=== PATIENT | female | born 1935 | race Two or more races ===

== ENCOUNTER 2021-03-04 06:17 | Inpatient (IN) | payer OTHER, SELFPAY ==
--- NOTE | ~2021-03-04 | XR_ITS ---
EXAMINATION: XR CHEST CLINICAL INFORMATION: Chest pain. COMPARISON: None TECHNIQUE: Frontal view of the chest was obtained. FINDINGS: The lungs are are in moderate inspiration with minimal atelectatic changes in both lung base. No consolidation. No pleural effusion.. Heart size and pulmonary vascularity is normal. No gross bony abnormality seen. XR/XR chest 1V IMPRESSION: Minimal atelectatic changes both lung bases. No consolidation or pleural effusion.
[2021-03-04 06:29] VITALS: BP 142/67; PULSE 88; RESP 18; TEMP 36.4; O2SAT 98; BMI 21.4
--- NOTE | 2021-03-04 06:50 | ED_ITS ---
HPI - Chest Pain General Chief Complaint: Chest Pain Stated Complaint: High blood pressure Time Seen by Provider: 03/04/21 06:50 Source: patient Mode of arrival: EMS Limitations: no limitations History of Present Illness HPI narrative: This is a 86-year-old female with no significant past medical history who presents via EMS for chest pain that woke her at 05:00. She states that she recently had a family member , and since then she has been having centralized chest pain that does not radiate. Nothing like this has ever happened to her before, she has no past cardiac history, or significant family history. She states that the pain is intermittent and, and is described as a pressure in the center of her chest. She denies abdominal pain, shortness of breath, dizziness, headaches, fevers and chills. Related Data Home Medications Medication Instructions Recorded Confirmed amlodipine 2.5 mg tablet 2.5 mg PO DAILY 03/04/21 03/04/21 calcium carbonate 500 mg (1,250 1 tab PO BID 03/04/21 03/04/21 mg)-vitamin D3 200 unit tablet (Oysco 500/D) cetirizine 10 mg tablet 10 mg PO DAILY 03/04/21 03/04/21 diclofenac sodium 1 % topical gel 1 ea TOPICAL QID 03/04/21 03/04/21 famotidine 20 mg tablet 20 mg PO BID 03/04/21 03/04/21 sennosides 8.6 mg-docusate sodium 1 tab PO BEDTIME 03/04/21 03/04/21 50 mg tablet (Stimulant Laxative Plus) tamoxifen 20 mg tablet 20 mg PO DAILY 03/04/21 03/04/21 venlafaxine 37.5 mg 37.5 mg PO DAILY 03/04/21 03/04/21 capsule,extended release 24 hr Allergies Allergy/AdvReac Type Severity Reaction Status Date / Time No Known Allergies Allergy Verified 03/04/21 06:32 Review of Systems Review of Systems: Constitutional : No Weight loss, No Fever, No Chills ENT/Mouth : No sore throat, No Rhinorrhea Eyes: No Eye Pain, No Swelling Cardiovascular : + Chest Pain, no palpitations Respiratory : No Cough, No Sputum, no shortness of breath Gastrointestinal : no Nausea, No Vomiting, No Diarrhea, No abdominal Pain, no black stools Genitourinary : No Dysuria, No Urinary Frequency Musculoskeletal : No joint pain, No Myalgias, No Joint Swelling Skin : No Skin Lesions, No rash Neuro : No Weakness, No Numbness, No Dizziness, No Headache Psych : No Anxiety/Panic, No Depression Heme/Lymph: No Bruising, No Lymphadenopathy Endocrine : No Polyuria, No Polydipsia All other systems reviewed and are negative [facility] Past Medical History Medical History (Updated 03/04/21 @ 11:42 by Yassine Blackburn MD) Breast cancer Dyspepsia Hypertension Osteoarthritis Osteoporosis Surgical History (Updated 03/04/21 @ 11:42 by Yassine Blackburn MD) Status post right knee replacement Social History Social History (Updated 03/04/21 @ 11:43 by Yassine Blackburn MD) Alcohol intake: never Patient Tobacco Use Status: Never used Tobacco Use of substances other than those prescribed or required for medical reasons: No Advance Directives: No Advance Directives Information Provided: No Physical Exam Vital Signs: Vital Signs: Last Vital Signs Temp 98.2 F 03/04/21 08:00 Pulse 78 03/04/21 08:00 Resp 20 03/04/21 08:00 BP 119/63 03/04/21 08:00 Pulse Ox 98 03/04/21 08:00 Body Mass Index 21.4 Appearance: Alert. Oriented X3. No acute distress. Eyes: PERRLA ENT: Pharynx normal. Oral Mucosa moist Neck: Normal inspection. Neck supple. CVS: Normal heart rate and rhythm. Pulses normal. Respiratory: No respiratory distress. Equal air entry bilateral, no wheezing/rales/rhonchi Abdomen: Soft and nontender. Bowel sounds are present, no mass palpable, no CVA tenderness Skin: Skin warm and dry. Normal skin color. Normal skin turgor. Extremities: No lower extremity edema. No calf tenderness Neuro: Oriented X 3. No motor deficit. MDM - Chest Pain MDM Narrative Medical decision making narrative: Patient has an increased stress woke up with chest pain elevated troponin without any acute ischemic changes in the kit EKG. Case discussed Dr. Gonzalez advised to start on heparin plan to admit and cardiac cath if needed patient chest pain-free during stay in the ER Lab Data Attestation: I reviewed the patient's lab results. Result diagrams: 03/04/21 09:14 03/04/21 09:14 Labs: Lab Results 03/04/21 03/04/21 03/04/21 Range/Units 09:14 09:14 09:14 WBC 7.4 (4.8-10.8) X10*3/uL RBC 4.27 (4.20-5.50) X10*6/uL Hgb 12.7 (12.0-16.0) g/dl Hct 38.0 (37-47) % MCV 89.0 (80-98) fL MCH 29.7 (27.0-33.0) pg MCHC 33.4 (31.0-35.0) g/dl RDW 14.3 (11.0-16.0) % Plt Count 179 (160-400) X10*3/uL MPV 9.3 L (9.4-12.3) fL Immature Gran % (Auto) 0.4 (0.0-0.4) % Neut % (Auto) 63.0 (45-73) % Lymph % (Auto) 24.9 (20-40) % [place] % (Auto) 9.7 (2-11) % Eos % (Auto) 1.5 (0-4) % Baso % (Auto) 0.5 (0-2) % Lymph # (Auto) 1.8 (1.2-4.9) X10*3/uL [place] # (Auto) 0.7 (0.1-1.2) X10*3/uL Eos # (Auto) 0.1 (0.0-0.4) X10*3/uL Baso # (Auto) 0.0 (0.0-0.2) X10*3/uL Abs Immat Gran (auto) 0.03 (0.00-0.03) X10*3/uL Absolute Neuts (auto) 4.6 (2.0-8.3) X10*3/uL Absolute Nucleated RBC 0.000 (0.0-0.012) X10*3/uL Nucleated RBC % (auto) 0.0 (0.0-0.2) /100WBC PT (9.9-13.0) SEC INR (0.9-1.1) APTT (24.1-38.0) SEC Sodium 141 (135-145) mmol/L Potassium 4.2 (3.3-5.1) mmol/L Chloride 112 H (96-108) mmol/L Carbon Dioxide 20 L (22-29) mmol/L Anion Gap 13 (12-20) BUN 14 (9-16) mg/dL Creatinine 0.87 (0.5-1.4) mg/dL Estim Creat Clear Calc 32.8 Estimated GFR > 60 Random Glucose 92 (60-115) mg/dL Calcium 8.9 (8.4-10.2) mg/dL Total Bilirubin 1.1 H (0.0-1.0) mg/dL Direct Bilirubin 0.4 (0.0-0.5) mg/dL AST 44 H (5-31) U/L ALT 13 (0-31) U/L Alkaline Phosphatase 42 (39-117) U/L Troponin I High Sens (<3.5-17.0) ng/L Total Protein 5.9 L (6.5-8.0) g/dL Albumin 3.3 L (3.5-5.0) g/dL COVID-19 (IAN) Negative (Negative) COVID-19 Clin Com See Note 03/04/21 03/04/21 Range/Units 09:14 09:14 WBC (4.8-10.8) X10*3/uL RBC (4.20-5.50) X10*6/uL Hgb (12.0-16.0) g/dl Hct (37-47) % MCV (80-98) fL MCH (27.0-33.0) pg MCHC (31.0-35.0) g/dl RDW (11.0-16.0) % Plt Count (160-400) X10*3/uL MPV (9.4-12.3) fL Immature Gran % (Auto) (0.0-0.4) % Neut % (Auto) (45-73) % Lymph % (Auto) (20-40) % [place] % (Auto) (2-11) % Eos % (Auto) (0-4) % Baso % (Auto) (0-2) % Lymph # (Auto) (1.2-4.9) X10*3/uL [place] # (Auto) (0.1-1.2) X10*3/uL Eos # (Auto) (0.0-0.4) X10*3/uL Baso # (Auto) (0.0-0.2) X10*3/uL Abs Immat Gran (auto) (0.00-0.03) X10*3/uL Absolute Neuts (auto) (2.0-8.3) X10*3/uL Absolute Nucleated RBC (0.0-0.012) X10*3/uL Nucleated RBC % (auto) (0.0-0.2) /100WBC PT 11.4 (9.9-13.0) SEC INR 1.0 (0.9-1.1) APTT 29.9 (24.1-38.0) SEC Sodium (135-145) mmol/L Potassium (3.3-5.1) mmol/L Chloride (96-108) mmol/L Carbon Dioxide (22-29) mmol/L Anion Gap (12-20) BUN (9-16) mg/dL Creatinine (0.5-1.4) mg/dL Estim Creat Clear Calc Estimated GFR Random Glucose (60-115) mg/dL Calcium (8.4-10.2) mg/dL Total Bilirubin (0.0-1.0) mg/dL Direct Bilirubin (0.0-0.5) mg/dL AST (5-31) U/L ALT (0-31) U/L Alkaline Phosphatase (39-117) U/L Troponin I High Sens 3993.1 H* (<3.5-17.0) ng/L Total Protein (6.5-8.0) g/dL Albumin (3.5-5.0) g/dL COVID-19 (IAN) (Negative) COVID-19 Clin Com ECG Data ECG #1: Attestation: I personally reviewed and interpreted this ECG as follows: Interpretation: Normal sinus rhythm heart rate 86 beats per minute right bundle-branch block left axis no acute ST wave changes no acute ischemia Critical Care Time Critical Care Time Critical Care Time: Yes Total Critical Care Time: 35 Attestation: I spent 35 minutes of critical care, with interventions, asse ssments, speaking to patient, consultants, and family. Discharge Plan Discharge Clinical Impression: Non-STEMI (non-ST elevated myocardial infarction) Patient Disposition: Admitted As Inpatient
--- NOTE | 2021-03-04 07:03 | ECG_ITS ---
Test Reason : CP Blood Pressure : / mmHG Vent. Rate : 086 BPM Atrial Rate : 086 BPM P-R Int : 170 ms QRS Dur : 108 ms QT Int : 404 ms P-R-T Axes : 047 -80 -03 degrees QTc Int : 483 ms Normal sinus rhythm Low voltage QRS Right bundle branch block Left anterior fascicular block Bifascicular block Nonspecific T wave abnormality Abnormal ECG No previous ECGs available Referred By: Connor Piña Electronically Signed By:DARIANA NUNES
[2021-03-04 08:00] VITALS: BP 119/63; PULSE 78; RESP 20; TEMP 36.8; O2SAT 98
[2021-03-04] MEDS: Aspirin Enteric Coated 81 MG TABLET.DR 162 MG PO (09:15)
[2021-03-04] MEDS: Nitroglycerin 2 % Oint 1 GM Packet 0.5 INCH TRANSDERMA (09:16)
[2021-03-04 09:29] LABS: MANUAL DIFF FLAG NO
[2021-03-04 09:30] LABS: Basophils Percent Auto 0.5 % (0-2); Eosinophils Absolute Auto 0.1 X10*3/uL (0.0-0.4); Eosinophils Percent Auto 1.5 % (0-4); Hemoglobin 12.7 g/dl (12.0-16.0); Imm Gran Abs Auto 0.03 X10*3/uL (0.00-0.03); Imm Gran Pct Auto 0.4 % (0.0-0.4); Lymphocytes Absolute Auto 1.8 X10*3/uL (1.2-4.9); Lymphocytes Percent Auto 24.9 % (20-40); Mean Corpuscular HGB Conc 33.4 g/dl (31.0-35.0); Mean Corpuscular Hemoglobin 29.7 pg (27.0-33.0); Mean Platelet Volume 9.3 fL (9.4-12.3); Monocytes Absolute Auto 0.7 X10*3/uL (0.1-1.2); Monocytes Percent Auto 9.7 % (2-11); Neutrophils Absolute Auto 4.6 X10*3/uL (2.0-8.3); Platelet Count 179 X10*3/uL (160-400); Red Blood Count 4.27 X10*6/uL (4.20-5.50); Red Cell Distribution Width 14.3 % (11.0-16.0); White Blood Count 7.4 X10*3/uL (4.8-10.8)
[2021-03-04 09:35] LABS: Prothrombin Time 11.4 SEC (9.9-13.0)
[2021-03-04 09:38] LABS: Partial Thromboplastin Time 29.9 SEC (24.1-38.0)
[2021-03-04 09:44] LABS: Alanine Aminotransferase 13 U/L (0-31); Albumin Level 3.3 g/dL (3.5-5.0); Alkaline Phosphatase 42 U/L (39-117); Anion Gap 13 (12-20); Aspartate Amino Transferase 44 U/L (5-31); Bilirubin Direct 0.4 mg/dL (0.0-0.5); Bilirubin Total 1.1 mg/dL (0.0-1.0); Blood Urea Nitrogen 14 mg/dL (9-16); Calcium 8.9 mg/dL (8.4-10.2); Carbon Dioxide 20 mmol/L (22-29); Chloride 112 mmol/L (96-108); Creatinine Clr Calc Pharmacy 32.8; Estimated Glomerular Filt Rate > 60; Glucose Random 92 mg/dL (60-115); Potassium 4.2 mmol/L (3.3-5.1); Sodium 141 mmol/L (135-145); Total Protein 5.9 g/dL (6.5-8.0)
[2021-03-04 09:53] LABS: COVID-19 Test Negative (Negative); IDNOW Serial# 9DD0AD1C
--- NOTE | 2021-03-04 09:56 | PC.NURSE ---
PT PENDING ADMISSION, HERE FOR CHEST PAIN, IV STARTED LABS SENT MEDS GIVEN. PT IS AOX4 ABLE TO AMB WITH STEADY GAIT. PT IS PENDING ADMISSION MED REC COMPLETED BY PHARMACY. CRITICAL LAB TROP 3993.1 DENICE IS AWARE
[2021-03-04 11:22] VITALS: BP 101/69; PULSE 81; RESP 18; TEMP 36.8; O2SAT 98
--- NOTE | 2021-03-04 11:32 | P.HPHOSP_ITS ---
History of Present Illness Date of Service: 03/04/21 Chief Complaint: Chest pain This is an 86-year-old female with a past medical history of hypertension, breast cancer currently on tamoxifen, osteoporosis, dyspepsia who presents to the hospital with complaints of substernal chest pain which began several hours prior to arrival. Patient is Tongan-speaking only but does have her granddaughter who is also her [employer] bedside and she prefers to have her translate. Per history reported by the granddaughter, the patient found out yesterday that 1 of her sons had and she became extremely emotional as 1 would expect after this. She went to bed yesterday evening and about 05:00 on the day of ED arrival patient woke up with left-sided pressure-like pain which was radiating to her back. The patient also has arthritis of the left arm so it was difficult for her to report whether this was worse as well. She reported that during this time she also had some trouble breathing. In regards to anginal symptoms in the past, initially the patient reported that she did not have any exertional chest pain. However upon specific questioning she endorse that over the last several months after walking her usual amount at home she has indeed had chest pain which lasts about 30 minutes. She reported that due to her history of dyspepsia she felt that this was gastrointestinal in nature and did not make much of it. Upon arrival to the emergency room she was noted to have a elevated high sensitivity troponin nearly 4000. Her EKG showed normal sinus rhythm with a right bundle pawel block as well as a left anterior fascicular block. She was started on IV heparin, given aspirin 162 and given nitropaste. Admission was requested. The case was discussed by the ED provider with the dance hall host/hostess whom will be seeing her in the hospital. When I saw the patient down in the emergency room, she reported that her chest pain had significantly improved. She was no longer feeling short of breath. r Review of Systems Review of Systems: chest pain, sob, arm pain Yes all other systems are reviewed and are negative [facility] Medical History (Updated 03/04/21 @ 11:42 by Yassine Blackburn MD) Breast cancer Dyspepsia Hypertension Osteoarthritis Osteoporosis Pertinent family history: Denies any history of CAD Surgical History (Updated 03/04/21 @ 11:42 by Yassine Blackburn MD) Status post right knee replacement Social History (Updated 03/04/21 @ 11:43 by Yassine Blackburn MD) Alcohol intake: never Patient Tobacco Use Status: Never used Tobacco Use of substances other than those prescribed or required for medical reasons: No Advance Directives: No Advance Directives Information Provided: No Meds Allergies Allergy/AdvReac Type Severity Reaction Status Date / Time No Known Allergies Allergy Verified 03/04/21 06:32 Active Medications: Current Medications Generic Name Dose Route Start Last Admin Trade Name Freq PRN Reason Stop Dose Admin Acetaminophen 650 mg 03/04/21 11:22 Acetaminophen 325 Mg Tablet PO Q6H PRN Pain, Mild (Pain Scale 1-3) Amlodipine Besylate 2.5 mg 03/05/21 09:00 Amlodipine Besylate 2.5 Mg Tablet PO DAILY [facility] Protocol Aspirin 81 mg 03/05/21 09:00 Aspirin 81 Mg Tab.Chew PO DAILY [facility] Atorvastatin Calcium 40 mg 03/04/21 21:00 Atorvastatin Calcium 40 Mg Tablet PO BEDTIME YOUSUF Famotidine 20 mg 03/04/21 21:00 Famotidine 20 Mg Tablet PO BID [facility] Heparin Sodium (Porcine) 1,900 unit 03/04/21 10:27 Heparin Sodium,Porcine 5,000 Unit/Ml Vial 40 unit/kg (1900 unit) IVPUSH PROTOCOL BOLUS PRN 40 unit/kg - Heparin Protocol Protocol Heparin Sodium (Porcine) 3,800 unit 03/04/21 10:27 Heparin Sodium,Porcine 5,000 Unit/Ml Vial 80 unit/kg (3800 unit) IVPUSH PROTOCOL BOLUS PRN 80 unit/kg - Heparin Protocol Protocol Heparin Sodium/Sodium Chloride 25,000 unit in 250 mls @ 0 mls/hr 03/04/21 10:30 IVCONT .Q0M [facility] Protocol Per Protocol Loratadine 10 mg 03/05/21 09:00 Loratadine 10 Mg Tablet PO DAILY [facility] Non-Formulary Medication 1 tab 03/04/21 21:00 Calcium Carbonate-Vitamin D3 [Oysco 500/D] PO BID [facility] Ondansetron HCl 4 mg 03/04/21 11:22 Ondansetron Hcl 4 Mg/2 Ml Vial IVPUSH Q8H PRN Nausea and Vomiting Pharmacy Consult 1 each 03/04/21 08:35 Consult Rx Perform Med Rec MISCELLANE ONCE PRN Consult order Senna/Docusate Sodium 1 tab 03/04/21 21:00 Sennosides/Docusate Sodium Tablet PO BEDTIME [facility] Sodium Chloride 3 ml 03/04/21 16:00 0.9 % Sodium Chloride Flush 3 Ml Syringe [facility] Tamoxifen Citrate 20 mg 03/05/21 09:00 Tamoxifen Citrate 10 Mg Tablet PO DAILY [facility] Venlafaxine HCl 1,406.25 mg 03/05/21 09:00 Venlafaxine Hcl Er 37.5 Mg Cap.Er.24h PO DAILY [facility] Home Medications Medication Instructions Recorded Confirmed Last Taken Type amlodipine 2.5 mg tablet 2.5 mg PO DAILY 03/04/21 03/04/21 03/03/21 History calcium carbonate 500 mg (1,250 1 tab PO BID 03/04/21 03/04/21 03/03/21 History mg)-vitamin D3 200 unit tablet (Oysco 500/D) cetirizine 10 mg tablet 10 mg PO DAILY 03/04/21 03/04/21 03/03/21 History diclofenac sodium 1 % topical gel 1 ea TOPICAL QID 03/04/21 03/04/21 Unknown History famotidine 20 mg tablet 20 mg PO BID 03/04/21 03/04/21 03/03/21 History sennosides 8.6 mg-docusate sodium 1 tab PO BEDTIME 03/04/21 03/04/21 03/03/21 History 50 mg tablet (Stimulant Laxative Plus) tamoxifen 20 mg tablet 20 mg PO DAILY 03/04/21 03/04/21 03/03/21 History venlafaxine 37.5 mg 37.5 cap PO DAILY 03/04/21 03/04/21 03/03/21 History capsule,extended release 24 hr Physical Exam Vital Signs and Narrative: Vital Signs: Last Vital Signs Temp 98.2 F 03/04/21 08:00 Pulse 78 03/04/21 08:00 Resp 20 03/04/21 08:00 BP 119/63 03/04/21 08:00 Pulse Ox 98 03/04/21 08:00 Body Mass Index 21.4 Const: Other: Constitutional - Awake and Alert, No apparent distress Eyes - PERRLA, EOMI Cardiovascular - S1S2, RRR, No edema Respiratory - Normal lung expansion, Normal respiratory effort, No respiratory distress, CTA bilaterally Gastrointestinal - NT / ND; +BS; No rebound or guarding - No CVA tenderness Extremities - no calf tenderness bilaterally, no swelling Musculoskeletal - Normal inspection, normal ROM Skin - Warm/Dry Neurological - Alert & oriented x3, No focal deficit Psychological - Appropriate affect Results Labs CBC and Chem 7: 03/04/21 09:14 03/04/21 09:14 Labs: Laboratory Results - last 24 hr 03/04/21 03/04/21 03/04/21 09:14 09:14 09:14 MCV 89.0 MCH 29.7 MCHC 33.4 RDW 14.3 Plt Count 179 MPV 9.3 L Immature Gran % (Auto) 0.4 Neut % (Auto) 63.0 Lymph % (Auto) 24.9 [place] % (Auto) 9.7 Eos % (Auto) 1.5 Baso % (Auto) 0.5 Lymph # (Auto) 1.8 [place] # (Auto) 0.7 Eos # (Auto) 0.1 Baso # (Auto) 0.0 Abs Immat Gran (auto) 0.03 Absolute Neuts (auto) 4.6 Absolute Nucleated RBC 0.000 Nucleated RBC % (auto) 0.0 PT INR APTT Anion Gap 13 Estim Creat Clear Calc 32.8 Estimated GFR > 60 Random Glucose 92 Calcium 8.9 Total Bilirubin 1.1 H Direct Bilirubin 0.4 AST 44 H ALT 13 Alkaline Phosphatase 42 Troponin I High Sens Total Protein 5.9 L Albumin 3.3 L COVID-19 (IAN) Negative COVID-19 Clin Com See Note 03/04/21 03/04/21 09:14 09:14 MCV MCH MCHC RDW Plt Count MPV Immature Gran % (Auto) Neut % (Auto) Lymph % (Auto) [place] % (Auto) Eos % (Auto) Baso % (Auto) Lymph # (Auto) [place] # (Auto) Eos # (Auto) Baso # (Auto) Abs Immat Gran (auto) Absolute Neuts (auto) Absolute Nucleated RBC Nucleated RBC % (auto) PT 11.4 INR 1.0 APTT 29.9 Anion Gap Estim Creat Clear Calc Estimated GFR Random Glucose Calcium Total Bilirubin Direct Bilirubin AST ALT Alkaline Phosphatase Troponin I High Sens 3993.1 H* Total Protein Albumin COVID-19 (IAN) COVID-19 Clin Com ECG Attestation: I personally reviewed and interpreted this ECG as follows: (NSR with RBBB) ECG interpretation date: 03/04/21 ECG interpretation time: 11:38 Imaging Radiologist's Impressions: Impressions Chest X-Ray 03/04/21 07:04 IMPRESSION: Minimal atelectatic changes both lung bases. No consolidation or pleural effusion. Assessment and Plan (1) Non-STEMI (non-ST elevated myocardial infarction): Status: Acute This is an 86 yo F with a PMH of HTN, Breast Ca currently on Tamoxifen, Dy spepsia, OA and osteoporsis, R Knee replacement who presents to the hospital with left sided pressure like pain with radation of the L arm of several hours duration. Her ED work up in consistent with NSTEMI. She has been started on IV heparin gtt and will be admitted for further work up and treatment. 1. NSTEMI IV heparin gtt, asa 81 daily, lipitor 40mg - check lipid panel 2d Echo Cardiology consult trend HS trop-I until it peaks 2. HTN controlled norvsac 3. History of breast Ca Tamoxidine 4. Dyspesis Famotidine DNR/DNI (confirmed by patient and granddaughter) Endorses her Son - Pako as HCP Quality Stroke Does the patient have a stroke diagnosis?: No VTE Prior VTE?: No VTE Risk Level:: Medical - moderate - high VTE Device Contraindication: Treatment Not Indicated VTE Drug Contraindication: N/A - Med Ordered
[2021-03-04] MEDS: Heparin Sodium,Porcine 5,000 UNIT/ML VIAL 2900 UNIT IVPUSH (12:13)
[2021-03-04] MEDS: Heparin Sodium,Porcine/1/2NS 25,000 UNIT/250 ML IV.SOLN 5.77 UNIT IVCONT (12:15)
--- NOTE | 2021-03-04 13:35 | PM.CNCAR ---
History of Present Illness History of Present Illness Date of Service: 03/04/21 Requesting physician: Connor Piña Chief complaint: NSTEMI Narrative: 86-year-old female with HTN who is presenting for CP. She was at her son's and developed CP. She ruled in for NSTEMI. Was started on heparin gtt. Pain free at this point. No bleeding issues. [facility] Past Medical History Medical History (Updated 03/04/21 @ 15:34 by Yassine Blackburn MD) Breast cancer Dyspepsia HTN (hypertension), benign Hypertension Osteoarthritis Osteoporosis Surgical History Surgical History (Updated 03/04/21 @ 11:42 by Yassine Blackburn MD) Status post right knee replacement Social History Social History (Updated 03/04/21 @ 11:43 by Yassine Blackburn MD) Alcohol intake: never Patient Tobacco Use Status: Never used Tobacco Use of substances other than those prescribed or required for medical reasons: No Advance Directives: No Advance Directives Information Provided: No Meds Allergies Allergy/AdvReac Type Severity Reaction Status Date / Time No Known Allergies Allergy Verified 03/04/21 06:32 Active Medications: Current Medications Generic Name Dose Route Start Last Admin Trade Name Freq PRN Reason Stop Dose Admin Acetaminophen 650 mg 03/04/21 11:22 Acetaminophen 325 Mg Tablet PO Q6H PRN Pain, Mild (Pain Scale 1-3) Amlodipine Besylate 2.5 mg 03/05/21 09:00 Amlodipine Besylate 2.5 Mg Tablet PO DAILY [facility] Protocol Aspirin 81 mg 03/05/21 09:00 Aspirin 81 Mg Tab.Chew PO DAILY [facility] Atorvastatin Calcium 40 mg 03/04/21 21:00 Atorvastatin Calcium 40 Mg Tablet PO BEDTIME [facility] Calcium Carbonate/Cholecalciferol 250 mg 03/04/21 21:00 Calcium + Vitamin D 250 Mg Tablet PO BID [facility] Famotidine 20 mg 03/04/21 21:00 Famotidine 20 Mg Tablet PO BID [facility] Heparin Sodium (Porcine) 1,900 unit 03/04/21 10:27 Heparin Sodium,Porcine 5,000 Unit/Ml Vial 40 unit/kg (1900 unit) IVPUSH PROTOCOL BOLUS PRN 40 unit/kg - Heparin Protocol Protocol Heparin Sodium (Porcine) 3,800 unit 03/04/21 10:27 Heparin Sodium,Porcine 5,000 Unit/Ml Vial 80 unit/kg (3800 unit) IVPUSH PROTOCOL BOLUS PRN 80 unit/kg - Heparin Protocol Protocol Heparin Sodium/Sodium Chloride 25,000 unit in 250 mls @ 0 mls/hr 03/04/21 10:30 03/04/21 12:15 IVCONT 12 units/kg/hr .Q0M YOUSUF 5.77 mls/hr Administration Protocol Per Protocol Loratadine 10 mg 03/05/21 09:00 Loratadine 10 Mg Tablet PO DAILY [facility] Ondansetron HCl 4 mg 03/04/21 11:22 Ondansetron Hcl 4 Mg/2 Ml Vial IVPUSH Q8H PRN Nausea and Vomiting Pharmacy Consult 1 each 03/04/21 08:35 Consult Rx Perform Med Rec MISCELLANE ONCE PRN Consult order Senna/Docusate Sodium 1 tab 03/04/21 21:00 Sennosides/Docusate Sodium Tablet PO BEDTIME [facility] Sodium Chloride 3 ml 03/04/21 16:00 0.9 % Sodium Chloride Flush 3 Ml Syringe IVFLUSH QSHIFT [facility] Tamoxifen Citrate 20 mg 03/05/21 09:00 Tamoxifen Citrate 10 Mg Tablet PO DAILY [facility] Venlafaxine HCl 37.5 mg 03/05/21 09:00 Venlafaxine Hcl Er 37.5 Mg Cap.Er.24h PO DAILY [facility] Home Medications Medication Instructions Recorded Confirmed Last Taken Type amlodipine 2.5 mg tablet 2.5 mg PO DAILY 03/04/21 03/04/21 03/03/21 History calcium carbonate 500 mg (1,250 1 tab PO BID 03/04/21 03/04/21 03/03/21 History mg)-vitamin D3 200 unit tablet (Oysco 500/D) cetirizine 10 mg tablet 10 mg PO DAILY 03/04/21 03/04/21 03/03/21 History diclofenac sodium 1 % topical gel 1 ea TOPICAL QID 03/04/21 03/04/21 Unknown History famotidine 20 mg tablet 20 mg PO BID 03/04/21 03/04/21 03/03/21 History sennosides 8.6 mg-docusate sodium 1 tab PO BEDTIME 03/04/21 03/04/21 03/03/21 History 50 mg tablet (Stimulant Laxative Plus) tamoxifen 20 mg tablet 20 mg PO DAILY 03/04/21 03/04/21 03/03/21 History venlafaxine 37.5 mg 37.5 mg PO DAILY 03/04/21 03/04/21 03/03/21 History capsule,extended release 24 hr Physical Exam Vital Signs: Vital Signs: Last Vital Signs Temp 98.2 F 03/04/21 08:00 Pulse 78 03/04/21 08:00 Resp 20 03/04/21 08:00 BP 119/63 03/04/21 08:00 Pulse Ox 98 03/04/21 08:00 Body Mass Index 21.4 GENERAL APPEARANCE: in no acute distress, pleasant. NECK: no carotid bruit, no jugular venous distention. SKIN: no suspicious lesions, warm and dry. HEART: no murmurs, regular rate and rhythm. LUNGS: clear to auscultation bilaterally. ABDOMEN: soft, nontender. EXTREMITIES: no edema. PERIPHERAL PULSES: equal. NEUROLOGIC: No gross deficits, AAO X 3 Results Labs and Meds Result diagrams: 03/04/21 09:14 03/04/21 09:14 Lab results: Laboratory Results - last 24 hr 03/04/21 03/04/21 03/04/21 09:14 09:14 09:14 WBC 7.4 RBC 4.27 Hgb 12.7 Hct 38.0 MCV 89.0 MCH 29.7 MCHC 33.4 RDW 14.3 Plt Count 179 MPV 9.3 L Immature Gran % (Auto) 0.4 Neut % (Auto) 63.0 Lymph % (Auto) 24.9 [place] % (Auto) 9.7 Eos % (Auto) 1.5 Baso % (Auto) 0.5 Lymph # (Auto) 1.8 [place] # (Auto) 0.7 Eos # (Auto) 0.1 Baso # (Auto) 0.0 Abs Immat Gran (auto) 0.03 Absolute Neuts (auto) 4.6 Absolute Nucleated RBC 0.000 Nucleated RBC % (auto) 0.0 PT INR APTT Sodium 141 Potassium 4.2 Chloride 112 H Carbon Dioxide 20 L Anion Gap 13 BUN 14 Creatinine 0.87 Estim Creat Clear Calc 32.8 Estimated GFR > 60 Random Glucose 92 Calcium 8.9 Total Bilirubin 1.1 H Direct Bilirubin 0.4 AST 44 H ALT 13 Alkaline Phosphatase 42 Troponin I High Sens Total Protein 5.9 L Albumin 3.3 L COVID-19 (IAN) Negative COVID-19 Clin Com See Note 03/04/21 03/04/21 09:14 09:14 WBC RBC Hgb Hct MCV MCH MCHC RDW Plt Count MPV Immature Gran % (Auto) Neut % (Auto) Lymph % (Auto) [place] % (Auto) Eos % (Auto) Baso % (Auto) Lymph # (Auto) [place] # (Auto) Eos # (Auto) Baso # (Auto) Abs Immat Gran (auto) Absolute Neuts (auto) Absolute Nucleated RBC Nucleated RBC % (auto) PT 11.4 INR 1.0 APTT 29.9 Sodium Potassium Chloride Carbon Dioxide Anion Gap BUN Creatinine Estim Creat Clear Calc Estimated GFR Random Glucose Calcium Total Bilirubin Direct Bilirubin AST ALT Alkaline Phosphatase Troponin I High Sens 3993.1 H* Total Protein Albumin COVID-19 (IAN) COVID-19 Clin Com Imaging Radiologist's impression: Impressions Chest X-Ray 03/04/21 07:04 IMPRESSION: Minimal atelectatic changes both lung bases. No consolidation or pleural effusion. Assessment and Plan (1) Non-STEMI (non-ST elevated myocardial infarction): Status: Acute 86 year old female presenting with CP and NSTEMI. On heparin gtt and aspirin. ECG has nonspecific changes. We discussed in detail and she is agreeable for cardiac cath. Will transfer her to [facility]. For cardiac cath tomorrow. Procedures Date of Service Date of Service: 03/04/21
--- NOTE | 2021-03-04 15:28 | P.DS_ITS ---
DS: Providers Provider Date of Service: 03/04/21 Date of admission: 03/04/21 11:22 Primary care physician: Unknown Physician Consults: 03/04/21 11:24 Consult to Cardiology Routine Consulting Provider: [facility] Reason for consultation: NSTEMI DS: Diagnosis Discharge Diagnosis (1) Non-STEMI (non-ST elevated myocardial infarction): Status: Acute DS: Summary Hospital Course Hospital Course: Patient was admitted to [facility] for the treatment of her and STEMI. She was started on IV heparin drip was given aspirin 162 mg and was started on Lipitor 40 mg (has not received as of this note). The plan was for 2D echocardiogram and cardiology consultation. She was evaluated by Cardiology while boarding in the emergency room and deemed a candidate for possible cardiac catheterization. For this she will be transferred to [facility]. Transfer has been discussed with the patient by the cardiology team and she has accepted transfer. Time Spent with Patient Time attestation: Total time spent providing and/or coordinating discharge services: Discharge coordination time: Greater than 30 minutes Quality: Stroke Does the patient have a stroke diagnosis?: No Physical Exam Vital Signs: Vital Signs: Last Vital Signs Temp 98.2 F 03/04/21 08:00 Pulse 78 03/04/21 08:00 Resp 20 03/04/21 08:00 BP 119/63 03/04/21 08:00 Pulse Ox 98 03/04/21 08:00 Body Mass Index 21.4 Const: Other: General - no acute distress, appears comfortable Cardiovascular - regular rate and rhythm, S1-S2 Lungs - normal respiratory effort, clear to auscultation bilaterally, no wheezing Abdomen - soft, nontender, no rebound or guarding Extremities - no edema bilaterally Neuro - awake and alert, no focal deficits DS: Data Data Completed and Pending Labs on day of discharge: Laboratory Results - last 24 hr 03/04/21 03/04/21 03/04/21 09:14 09: 09:14 WBC 7.4 RBC 4.27 Hgb 12.7 Hct 38.0 MCV 89.0 MCH 29.7 MCHC 33.4 RDW 14.3 Plt Count 179 MPV 9.3 L Immature Gran % (Auto) 0.4 Neut % (Auto) 63.0 Lymph % (Auto) 24.9 [place] % (Auto) 9.7 Eos % (Auto) 1.5 Baso % (Auto) 0.5 Lymph # (Auto) 1.8 [place] # (Auto) 0.7 Eos # (Auto) 0.1 Baso # (Auto) 0.0 Abs Immat Gran (auto) 0.03 Absolute Neuts (auto) 4.6 Absolute Nucleated RBC 0.000 Nucleated RBC % (auto) 0.0 PT INR APTT Sodium 141 Potassium 4.2 Chloride 112 H Carbon Dioxide 20 L Anion Gap 13 BUN 14 Creatinine 0.87 Estim Creat Clear Calc 32.8 Estimated GFR > 60 Random Glucose 92 Calcium 8.9 Total Bilirubin 1.1 H Direct Bilirubin 0.4 AST 44 H ALT 13 Alkaline Phosphatase 42 Troponin I High Sens Total Protein 5.9 L Albumin 3.3 L COVID-19 (IAN) Negative COVID-19 Clin Com See Note 03/04/21 03/04/21 09:14 09:14 WBC RBC Hgb Hct MCV MCH MCHC RDW Plt Count MPV Immature Gran % (Auto) Neut % (Auto) Lymph % (Auto) [place] % (Auto) Eos % (Auto) Baso % (Auto) Lymph # (Auto) [place] # (Auto) Eos # (Auto) Baso # (Auto) Abs Immat Gran (auto) Absolute Neuts (auto) Absolute Nucleated RBC Nucleated RBC % (auto) PT 11.4 INR 1.0 APTT 29.9 Sodium Potassium Chloride Carbon Dioxide Anion Gap BUN Creatinine Estim Creat Clear Calc Estimated GFR Random Glucose Calcium Total Bilirubin Direct Bilirubin AST ALT Alkaline Phosphatase Troponin I High Sens 3993.1 H* Total Protein Albumin COVID-19 (IAN) COVID-19 Clin Com Discharge Plan Discharge Patient Disposition: er Acute Care Hospital Discharge Diagnosis: NSTEMI Referrals: Physician,Unknown [Primary Care Provider] - 1 Week Discharge Medications: New atorvastatin 40 mg Tablet 40 mg PO BEDTIME Qty: 30 RF: 0 heparin(porcine) in 0.45% NaCl 25,000 unit/250 mL Parenteral Solution 25,000 unit continuous IV infusion .Q0M Qty: 6000 RF: 0 aspirin 81 mg Tablet,Chewable 81 mg PO DAILY Qty: 30 RF: 0 Continued venlafaxine 37.5 mg capsule,extended release 24hr 37.5 mg PO DAILY RF: 0 cetirizine 10 mg tablet 10 mg PO DAILY RF: 0 sennosides-docusate sodium [Stimulant Laxative Plus] 8.6-50 mg tablet 1 tab PO BEDTIME RF: 0 amlodipine 2.5 mg tablet 2.5 mg PO DAILY RF: 0 famotidine 20 mg tablet 20 mg PO BID RF: 0 tamoxifen 20 mg tablet 20 mg PO DAILY RF: 0 calcium carbonate-vitamin D3 [Oysco 500/D] 500 mg(1,250mg) -200 unit tablet 1 tab PO BID RF: 0 diclofenac sodium 1 % gel 1 ea topical QID RF: 0 Discharge Orders: Discharge Order (Routine); Ordered 03/04/21 Ordered By: Yassine Blackburn Diet: advance to usual diet Activity on Discharge: As tolerated Stand Alone Forms: Patient Portal Discharge page Care Plan Goals: To get treatment for MS Health Concerns: Heart Attack Plan of Treatment: To go to [facility] for further treatment Assessment: 86 yo F presented with anginal type chest pain and diagnosed with NSTEMI. Evaluated by cardiology and will be transferred to [facility] for further treatment.
--- NOTE | 2021-03-04 18:06 | PC.NURSE ---
Report given to LAURO horta on m5 PT is going to rm [id number]
--- NOTE | 2021-03-05 08:41 | MHC.CM.PN ---
Patient transferred to [facility] before she could be seen by case management.
== END 2021-03-05 07:30 | disposition short-term general hospital (02) | DRG 282 ==
LOC: HO.ED 09:30 → HO.EDOVER 11:42
PROVIDERS: Admitting Provider Family Medicine; Emergency Provider Internal Medicine; PCP Internal Medicine; Visit Provider Physician Assistant Medical
DX: I21.4 Non-ST elevation (NSTEMI) myocardial infarction (principal); C50.919 Malignant neoplasm of unspecified site of unspecified female breast; I10 Essential (primary) hypertension; R10.13 Epigastric pain; Z96.651 Presence of right artificial knee joint; Z20.822 Contact with and (suspected) exposure to COVID-19; Z79.82 Long term (current) use of aspirin; Z79.810 Long term (current) use of selective estrogen receptor modulators (SERMs); Z79.899 Other long term (current) drug therapy; Z66 Do not resuscitate
CPT/HCPCS: 36415; 71045; 80048; 80076; 84484; 85025; 85610; 85730; 87635; 93005; 96365; 96375; 99285; 99291

== ENCOUNTER → 2021-03-12 14:38 | Outpatient (BNVA) | payer OTHER, SELFPAY | PROVIDERS: PCP Internal Medicine; Visit Provider Internal Medicine Cardiovascular Disease | DX: I51.81 Takotsubo syndrome (principal); I21.4 Non-ST elevation (NSTEMI) myocardial infarction | CPT/HCPCS: 99212 ==

== ENCOUNTER → 2021-05-12 10:16 | Outpatient (REF) | payer OTHER, SELFPAY ==
--- NOTE | 2021-05-12 10:25 | CA_ITS ---
Transthoracic Echocardiogram Patient (Last, First, Middle): Elsie Herzog, Gender: Female Date of : 1935 Age: 86 Procedure Date: 05/12/2021 Procedure Type: Transthoracic Echocardiogram Location: OP Height: 139.7 cm Weight: 47.63 kg BSA: 1.33 m2 Heart Rate: bpm BP: 130 / 80 mmHg Energy Systems Engineer: NANCY Crews MD: Dl Gonzalez MD Symptoms: I51.81 - Takotsubo syndrome Study Quality: Good Conclusions: - Normal left ventricular size, thickness, and systolic function. The visually estimated ejection fraction is between 60-65%. - Normal right ventricular cavity size and systolic function. - The left atrium is mildly dilated. - There is trace (trivial) aortic valve regurgitation. - There is no evidence of pulmonary hypertension. Findings Left Ventricle Normal left ventricular size, thickness, and systolic function. The visually estimated ejection fraction is between 60-65%. There is no evidence of regional wall motion abnormalities. Diastolic function is normal for age. Right Ventricle Normal right ventricular cavity size and systolic function. Atria The left atrium is mildly dilated. Aortic Valve There is a normal trileaflet aortic valve. There is mild calcification of the aortic valve. There is no evidence of thickening of the aortic valve. There is trace (trivial) aortic valve regurgitation. Mitral Valve Normal mitral valve structure and function. There is trace mitral valve regurgitation. There is no mitral valve stenosis. Pulmonic Valve Normal pulmonic valve structure and function. There is trace pulmonic valve regurgitation. Tricuspid Valve Normal tricuspid valve structure. There is no tricuspid valve regurgitation. Normal right atrial pressure. There is no evidence of pulmonary hypertension. Great Vessels All visible segments of the aorta are normal in size. The visualized portions of the pulmonary artery and branches are normal. Venous The inferior vena cava is normal in size and collapses greater than 50% with inspiration. Pericardium/Pleural There is no evidence of pericardial effusion. Prior Study Comparison No prior study available for comparison. Measurements 2D Linear Measurements IVSd: 0.99 0.6-0.9/0.6-1.0 cm LVIDd: 3.73 3.9-5.3/4.2-5.9 cm LVIDd Index: 2.80 2.4-3.2/2.2-3.1 cm/m2 LVIDs: 2.68 2.0-3.6 cm LVPWd: 0.88 0.7-1.1 cm Ao Root: 2.80 2.1-3.5 cm LA Diam: 3.80 2.7-3.8/3.0-4.0 cm LAIDs Index: 2.86 1.5-2.3 cm/m2 LV Mass: 128.38 67-162/88-224 g LV Mass Index: 96.52 43-95/49-115 g/m2 LVOT Diam: 2.00 3.0+(-)1.3 cm 2D Systolic Function EF 4C: 56.00 >55% EF 2C: 63.30 >55% EF BiP: 59.00 >55% Mitral Valve MV Pk E: 0.53 MV PK A: 0.81 MV Decel Time: 141.00 E/A: 0.70 E'Lateral: 7.83 E'Medial: 5.22 E/E' Med: 10.20 E/E' Lat: 6.80 PHT: 41.00 MVA PHT: 5.37 Decel [place]: 3.78 Aortic Valve AoV Pk Benito: 1.97 AoV Mn [place]: 1.32 AoV VTI: 0.40 AoV Pk Grad: 16.00 Aov Mn Grad: 8.00 MAGO Cont.VTI: 1.91 AI Pk [place]: 5.39 AI [place]: 4.61 LVOT LVOT Pk [place]: 1.21 LVOT Mn [place]: 0.78 LVOT VTI: 0.24 LVOT Pk Grad: 6.00 LVOT Mn Grad: 3.00 LVOT Diam: 2.00 LVOT Area: 3.14 Diastolic Function MV Pk E: 0.53 MV Pk A: 0.81 E/A: 0.70 E'Medial: 5.22 E/E' Med: 10.20 E' Laterial: 7.83 E/E' Lat: 6.80 Right Ventricle TAPSE (mm): 2.00 TVS' Benito: 10.80 Tricuspid Valve TR Pk Benito: 2.43 TR Pk Grad: 24.00 RA Press: 3.00 RVSP: 27.00 Great Vessels Aorta Ao Root-2D: 2.80 2.0-3.7 cm Ao Asc: 2.90 2.1-3.4 cm Ao Arch: 2.60 Updated in Other Vendor System with Status of Final Dl Gonzalez MD electronically signed on 05/12/2021 4:36:51 PM with status of Final
== END ==
LOC: HO.CARD 10:16
PROVIDERS: Visit Provider Internal Medicine Cardiovascular Disease
DX: I51.81 Takotsubo syndrome (principal)
CPT/HCPCS: 93306

== ENCOUNTER 2021-07-28 12:48 | Emergency (ER) | payer OTHER, SELFPAY ==
[2021-07-28 12:59] VITALS: BP 200/117; PULSE 98; RESP 18; TEMP 36.4; O2SAT 100; BMI 24.6
--- NOTE | 2021-07-28 14:47 | ED_ITS ---
HPI - Skin/Abscess/Foreign Bdy General Chief complaint: General Medical Stated complaint: pain Time Seen by Provider: 07/28/21 14:32 Source: patient, family and spanish medical interpreter Mode of arrival: ambulatory Limitations: no limitations History of Present Illness MD complaint: abscess/boil and lesion Onset (ago): day(s) (noted last night ) Tetanus up to date: yes Location: genitals (R labia) Severity: moderate Quality: aching and constant Pain Consistency: constant Relieving factors: none Exacerbating factors: palpation Context: none Associated symptoms: denies other symptoms Treatments prior to arrival: none Related Data Home Medications Medication Instructions Recorded Confirmed amlodipine 2.5 mg tablet 2.5 mg PO DAILY 03/04/21 03/12/21 calcium carbonate 500 mg-vitamin 1 tab PO BID 03/04/21 03/12/21 D3 5 mcg (200 unit) tablet (Oysco 500/D) cetirizine 10 mg tablet 10 mg PO DAILY 03/04/21 03/12/21 diclofenac sodium 1 % topical gel 1 ea TOPICAL QID 03/04/21 03/12/21 famotidine 20 mg tablet 20 mg PO BID 03/04/21 03/12/21 sennosides 8.6 mg-docusate sodium 1 tab PO BEDTIME 03/04/21 03/12/21 50 mg tablet (Stimulant Laxative Plus) tamoxifen 20 mg tablet 20 mg PO DAILY 03/04/21 03/12/21 venlafaxine 37.5 mg 37.5 mg PO DAILY 03/04/21 03/12/21 capsule,extended release 24 hr metoprolol tartrate 25 mg tablet 25 mg PO BID 03/12/21 03/12/21 ticagrelor 90 mg tablet (Brilinta) 90 mg PO BID 03/12/21 03/12/21 Previous Rx's Medication Instructions Recorded aspirin 81 mg chewable tablet 81 mg PO DAILY #30 tab 03/04/21 atorvastatin 40 mg tablet 40 mg PO BEDTIME #30 tab 03/04/21 cephalexin 500 mg capsule 500 mg PO BID 7 Days #14 cap 07/28/21 oxycodone 5 mg tablet 2.5 mg PO BID PRN #5 tab 07/28/21 Allergies Allergy/AdvReac Type Severity Reaction Status Date / Time No Known Allergies Allergy Verified 07/28/21 13:03 Review of Systems Verdana 4l Review of Systems: Verdana 4d Verdana 4d Constitutional : No Fever, No Chills ENT/Mouth : No sore throat, No Rhinorrhea Eyes: No Eye Pain, No Swelling, No Redness Cardiovascular : No Chest Pain, No SOB Respiratory : No Cough, No Sputum Gastrointestinal : No Nausea, No Vomiting, NoNo Diarrhea, No abdominal Pain Genitourinary : No Dysuria, No Hematuria Musculoskeletal : No joint pain, No Myalgias, No Joint Swelling Skin : pos Skin Lesions, positive skin rash Neuro : No Weakness, No Numbness, No Headache Psych : No Anxiety, No Depression Heme/Lymph: No Bruising, No Bleeding,No Lymphadenopathy Endocrine : No Polyuria, No Polydipsia All other systems reviewed and are negative [facility] Past Medical History Attestation statement: The following information was validated with the patient. Medical History Breast cancer Dyspepsia HTN (hypertension), benign Hypertension Osteoarthritis Osteoporosis Surgical History Status post right knee replacement Social History Social History Alcohol intake: never Patient Tobacco Use Status: Never used Tobacco Use of substances other than those prescribed or required for medical reasons: No Advance Directives: No Advance Directives Information Provided: No Physical Exam Verdana 4l Vital Signs: Verdana 4d Verdana 4d Vital Signs: Verdana 4d Verdana 4Bd Last Vital Signs Verdana 4d Radio Sales Account Executive New 4d Radio Sales Account Executive New 4d Temp 98.0 F 07/28/21 15:07 Radio Sales Account Executive New 4d Pulse 68 07/28/21 15:07 Radio Sales Account Executive New 4d Resp 16 07/28/21 15:07 BP 96/61 07/28/21 15:07 Pulse Ox 100 07/28/21 15:07 BMI result Body Mass Index 24.6 Appearance: Alert. Oriented X3. No acute distress. Eyes: Pupils equal, round and reactive to light. ENT: Pharynx normal. Neck: Normal inspection. Neck supple. CVS: Normal heart rate and rhythm. Pulses normal. Respiratory: No respiratory distress. Breath sounds normal. Abdomen: Soft and nontender. : R labia 3cm lower labial abscess to a point no crepitus no surrounding or extending erythema/edema Skin: Skin warm and dry. Normal skin color. Normal skin turgor. Extremities: No lower extremity edema. No calf ttp Neuro: Oriented X 3. No motor deficit. No sensory deficit. Course Course Course Narrative: patient doing well, DOCUMENT MANAGEMENT TECHNICIAN at bedside understands instructions very helpful stable for DC MDM - Skin/Abscess/Foreign Bdy MDM Narrative Medical decision making narrative: 86 yo female with hx of HTN, HLD, NSTEMI recent stent on ASA/brilinta, notes a lump on R labia last night - no prior events of this in the past no hx of MRSA will aspirate lesion and start on antibiotics has no systemic symptoms no crepitus no features of Wesley's. BP up due to paitent not taking her medications today. Procedures Abscess I/D Site: other (R labia lower) Side (if applicable): right Local Anesthetic: lidocaine 1% (3) Amount of anesthesia used (mL): 3 Technique: needle aspiration (18 G no bleeding afterwards, betadine, sterile procedure) Amount of fluid expressed (mL): 2 (clear yellow liquid? cyst fluid) Sent for culture/gram staining?: No Irrigation: No Packing used?: none Discharge Plan Discharge Clinical Impression: Abscess of labia Patient Disposition: Home, Self-Care Instructions: Abscess (ED) Additional Instructions: return to ED for any worsening symptoms or concerns possible early abscess vs cyst take antibiotics, keep area clean and dry it might drain clear / yellow / red fluid monitor for significant bleeding, fevers, vomiting, inability to take antibiot ics it is okay to shower, do not soak in a tub Prescriptions: New cephalexin 500 mg capsule 500 mg PO BID 7 Days Qty: 14 0RF oxycodone 5 mg tablet 2.5 mg PO BID PRN (Reason: pain) Qty: 5 0RF No Action venlafaxine 37.5 mg capsule,extended release 24hr 37.5 mg PO DAILY 0RF cetirizine 10 mg tablet 10 mg PO DAILY 0RF sennosides-docusate sodium [Stimulant Laxative Plus] 8.6-50 mg tablet 1 tab PO BEDTIME 0RF amlodipine 2.5 mg tablet 2.5 mg PO DAILY 0RF famotidine 20 mg tablet 20 mg PO BID 0RF tamoxifen 20 mg tablet 20 mg PO DAILY 0RF calcium carbonate-vitamin D3 [Oysco 500/D] 500 mg(1,250mg) -200 unit tablet 1 tab PO BID 0RF diclofenac sodium 1 % gel 1 ea topical QID 0RF atorvastatin 40 mg Tablet 40 mg PO BEDTIME Qty: 30 0RF aspirin 81 mg Tablet,Chewable 81 mg PO DAILY Qty: 30 0RF metoprolol tartrate 25 mg tablet 25 mg PO BID 0RF Brilinta 90 mg tablet 90 mg PO BID 0RF Print Language: Portuguese
[2021-07-28 15:05] VITALS: BP 175/84; PULSE 82; RESP 18; O2SAT 100
[2021-07-28] MEDS: Ondansetron ODT 4 MG TAB.RAPDIS TRANSLINGU (15:05)
[2021-07-28] MEDS: oxyCODONE HCl Immed Release 5 MG TABLET PO (15:05)
[2021-07-28] MEDS: Lidocaine HCl 1 % 20 ML VIAL SUBCUT (15:06)
[2021-07-28] MEDS: Lidocaine 4 % Cream KIT 1 APPL TOPICAL (15:06)
[2021-07-28 15:07] VITALS: BP 96/61; PULSE 68; RESP 16; TEMP 36.7; O2SAT 100
[2021-07-28] MEDS: cephALEXin 500 MG CAPSULE PO (16:25)
== END 2021-07-28 16:35 | disposition home or self-care (01) ==
LOC: HO.ED 14:36
PROVIDERS: Emergency Provider Emergency Medicine; PCP Internal Medicine
DX: N76.4 Abscess of vulva (principal); I10 Essential (primary) hypertension; Z85.3 Personal history of malignant neoplasm of breast
CPT/HCPCS: 56405; 99284

== ENCOUNTER → 2021-07-30 14:54 | Outpatient (BNVA) | payer OTHER, SELFPAY | PROVIDERS: Visit Provider Internal Medicine Cardiovascular Disease | DX: I25.5 Ischemic cardiomyopathy (principal); I51.81 Takotsubo syndrome | CPT/HCPCS: 99212 ==

== ENCOUNTER → 2022-02-04 14:28 | Outpatient (BNVA) | payer OTHER, SELFPAY | PROVIDERS: PCP Nurse Practitioner Family; Visit Provider Internal Medicine Cardiovascular Disease | DX: I21.4 Non-ST elevation (NSTEMI) myocardial infarction (principal); I51.81 Takotsubo syndrome | CPT/HCPCS: 93005; 99212 ==

== ENCOUNTER 2022-07-27 14:53 | Outpatient (REF) | payer OTHER, SELFPAY ==
[2022-07-27 16:27] LABS: Hematocrit 38.9 % (37.0-47.0); Hemoglobin 12.6 g/dl (12.0-16.0); Mean Corpuscular HGB Conc 32.4 g/dl (31.0-35.0); Mean Corpuscular Volume 89.6 fL (80.0-98.0); Mean Platelet Volume 9.3 fL (9.4-12.3); Platelet Count 302 X10*3/uL (160-400); Red Blood Count 4.34 X10*6/uL (4.20-5.50); Red Cell Distribution Width 14.5 % (11.0-16.0); White Blood Count 7.1 X10*3/uL (4.8-10.8)
[2022-07-27 16:45] LABS: Anion Gap 12 (12-20); Blood Urea Nitrogen 17 mg/dL (9-16); Calcium 9.7 mg/dL (8.4-10.2); Carbon Dioxide 25 mmol/L (22-29); Chloride 106 mmol/L (96-108); Estimated Glomerular Filt Rate > 60; Glucose Random 85 mg/dL (60-115); Potassium 4.3 mmol/L (3.3-5.1); Sodium 139 mmol/L (135-145)
[2022-07-27 16:48] LABS: B Type Natriuretic Peptide 147 pg/mL (<100)
== END 2022-07-27 14:54 | disposition home or self-care (01) ==
LOC: HO.LAB 14:53
PROVIDERS: PCP Nurse Practitioner Family; Visit Provider Internal Medicine Cardiovascular Disease
DX: R06.02 Shortness of breath (principal); I20.8 Other forms of angina pectoris
CPT/HCPCS: 36415; 80048; 83880; 85027; 93005; 99212

== ENCOUNTER → 2022-11-18 14:56 | Outpatient (BNVA) | payer OTHER, SELFPAY | PROVIDERS: PCP Nurse Practitioner Family; Visit Provider Internal Medicine Cardiovascular Disease | DX: I20.8 Other forms of angina pectoris (principal); I10 Essential (primary) hypertension; R60.9 Edema, unspecified; I25.2 Old myocardial infarction; Z79.82 Long term (current) use of aspirin | CPT/HCPCS: 99212 ==

== ENCOUNTER → 2023-05-17 15:25 | Outpatient (BNVA) | payer OTHER, SELFPAY | PROVIDERS: PCP Nurse Practitioner Family; Visit Provider Internal Medicine Cardiovascular Disease | DX: I20.89 Other forms of angina pectoris (principal); I10 Essential (primary) hypertension; I51.81 Takotsubo syndrome; R60.9 Edema, unspecified; Z98.890 Other specified postprocedural states | CPT/HCPCS: 99212 ==

== ENCOUNTER 2023-05-17 15:27 | Outpatient (AMB) | payer OTHER, SELFPAY ==
[2023-05-17 15:37] VITALS: BP 128/64; PULSE 63; O2SAT 99; BMI 24.9
--- NOTE | 2023-05-17 15:37 | MHC.OFFVIS ---
Intake Vital Signs 05/17/23 15:37 Height 4 ft 8 in Weight 111 lb 1.808 oz BMI 24.9 BP 128/64 Blood Pressure Location Rt brachial Position Sitting Pulse 63 Pulse Source Pulse Oximeter Pulse Oximetry (%) 99 Oxygen Delivery Method Room Air Intake Visit Reasons: 6 mth f/up Intake Note: Pt presents to the office today for a 6 month follow up. Pt states she has been having some discomfort in her chest occasionally but denies any other cardiac concerns at this time. Accompanied by: BAND SALVAGER worker Allergies oxycodone Allergy (Severe, Verified 05/17/23 15:41) Hallucinations acetaminophen [From Percocet] Allergy (Intermediate, Verified 05/17/23 15:41) Rash Medication List - Last Reconciled 05/17/23 by Dl Gonzalez MD albuterol 90 mcg/actuation mcg inhalation amlodipine 5 mg PO DAILY aspirin 81 mg PO DAILY atorvastatin 40 mg PO BEDTIME calcium carbonate-vitamin D3 500 mg-5 mcg (200 unit) (Oysco 500/D) 1 tab PO BID cetirizine 10 mg PO DAILY diclofenac sodium 1% 1 ea topical QID famotidine 20 mg PO BID metoprolol tartrate 25 mg PO BID sennosides-docusate sodium 8.6-50 mg (Stimulant Laxative Plus) 1 tab PO BEDTIME tamoxifen 20 mg PO DAILY venlafaxine ER 37.5 mg PO DAILY HPI HPI Comments History of Present Illness Details Pleasant 88-year-old female with history of coronary disease as well as takotsubo cardiomyopathy. She was originally seen for chest pain and NSTEMI and was taken for cardiac catheterization which revealed severe OM stenosis which was treated with drug-eluting stent. Subsequent echocardiography showed takotsubo cardiomyopathy. It appears her son when she presented with chest pain and clinical presentation was more consistent with Takotsubo Cardiomyopathy. Her echocardiogram subsequently showed recovery of the cardiomyopathy. She is here for follow-up. She had peripheral edema and was referred to us for congestive heart failure. She was started on Lasix with some improvement in her dyspnea but continued to have peripheral edema. In follow-up she stop taking Lasix. Today she is again not complaining of any significant issues. She has some peripheral edema which I think is related to amlodipine. She has no chest discomfort or significant shortness of breath on follow-up today. 05/17/2023: She returns for follow-up. She is not very active but in her day-to-day activities no chest discomfort or breathing issues. Occasionally she feels left-sided somewhat pounding sensation. This is quite infrequent. She is taking her medications regularly. She has mild peripheral edema from amlodipine as before. [facility] Medical History HTN (hypertension), benign Osteoporosis Osteoarthritis Hypertension Dyspepsia Breast cancer Surgical History Status post right knee replacement Alcohol intake: never Patient Tobacco Use Status: Never used Tobacco Physical Exam Vital Signs: Last Vital Signs Pulse 63 05/17/23 15:37 BP 128/64 05/17/23 15:37 Pulse Ox 99 05/17/23 15:37 Oxygen Delivery Method Room Air 05/17/23 15:37 BMI result Body Mass Index 24.9 GENERAL APPEARANCE: in no acute distress, pleasant. NECK: no carotid bruit, mild jugular venous distention. SKIN: no suspicious lesions, warm and dry. HEART: no murmurs, regular rate and rhythm. LUNGS: Crackles at bases ABDOMEN: soft, nontender. EXTREMITIES: Trace edema. PERIPHERAL PULSES: equal. NEUROLOGIC: No gross deficits, AAO X 3 Assessment & Plan Assessment & Plan (1) Peripheral edema: Code(s): R60.9 - Edema, unspecified (2) Hypertension: Code(s): I10 - Essential (primary) hypertension (3) Stable angina: Code(s): I20.8 - Other forms of angina pectoris Plan Pleasant 88 year female with background of takotsubo cardiomyopathy with recovery. She also had NSTEMI and had OM PCI in the past. Stable angina currently. Blood pressure control is good. She is on baby aspirin which she should continue. She has peripheral edema due to amlodipine. This is very mild currently and does not need any changes in medications or diuretics. Non anginal chest pain. Follow-up with us in 6 months. Thank you for allowing me to participate in the care of your patient. Please feel free to contact me if you have any questions. Coding Level of Care Code Est Pt Level 4 (06020) Diagnoses Peripheral edema R60.9 Hypertension I10 Stable angina I20.8
== END 2023-05-17 15:49 | disposition home or self-care (01) ==
PROVIDERS: PCP Nurse Practitioner Family; Visit Provider Internal Medicine Cardiovascular Disease
DX: R60.9 Edema, unspecified (principal); I10 Essential (primary) hypertension; I20.8 Other forms of angina pectoris
CPT/HCPCS: 99214

== ENCOUNTER 2024-03-31 16:19 | Emergency (ER) | payer OTHER, SELFPAY ==
--- NOTE | ~2024-03-31 | XR_ITS ---
EXAMINATION: XR RIBS, LEFT CLINICAL INFORMATION: Status post fall with pain in the left deep cage COMPARISON: March 04, 2021 chest radiograph TECHNIQUE: 3 views of the left ribs and single view of the lungs were obtained. FINDINGS: Lungs are clear. No consolidation, pneumothorax, or pleural effusion. The cardiomediastinal silhouette and pulmonary vasculature are normal. Osseous structures are unremarkable. Ribs are intact. No fractures are identified. XR/XR ribs LT min 3V w CXR1V IMPRESSION: Unremarkable examination. Electronically signed by: Chino Kate MD 03/31/2024 06:11 PM EDT
--- NOTE | ~2024-03-31 | CT_ITS ---
EXAMINATION: CT HEAD WITHOUT CONTRAST CLINICAL INFORMATION: Trauma. Fall. COMPARISON: None available. TECHNIQUE: Contiguous axial imaging was performed from the skull base to vertex without intravenous administration of contrast. This CT examination was performed using dose optimization techniques as appropriate, variously including the following: *Automated exposure control. *Adjustment of mA and/or kV according to patient size (this includes techniques or standardized protocols for targeted exams where dose is matched to indication/reason for exam; i.e. extremities or head). *Use of iterative reconstruction technique. DLP: 564 mGy-cm FINDINGS: There is no evidence of acute intracranial hemorrhage or edematous territorial infarction. 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 No additional loss of rascon-white matter differentiation. Confluent hypoattenuation in the periventricular and deep white matter. Proportional prominence of the ventricles and sulcal spaces without evidence of obstructive hydrocephalus. No abnormal mass effect or midline shift. No extra-axial fluid collections. Calcific atherosclerotic disease of the intracranial internal carotid and vertebral arteries. No hyperdense vessel sign. No acute soft tissue or osseous abnormalities. Mild mucosal thickening of the paranasal sinuses. Moderate leftward nasal septal deviation. The mastoid air cells and middle ear cavities are clear. Bilateral lens extractions. Elongated macrophthalmia bilaterally. CT/CT head/brain wo IV con IMPRESSION: 1. No evidence of acute intracranial hemorrhage or edematous territorial infarction. 2. Extensive underlying microangiopathy and generalized cerebral volume loss. Lacunar infarcts of the deep nuclei. Electronically signed by: Paul Davis DO 03/31/2024 11:58 PM EDT
--- NOTE | ~2024-03-31 | XR_ITS ---
EXAMINATION: XR HIP, LEFT CLINICAL INFORMATION: Left hip pain COMPARISON: None available. TECHNIQUE: Two views of the left hip and AP pelvis. FINDINGS: No fracture. Alignment is anatomic. Hip joint space is maintained. Soft tissues are unremarkable. XR/XR hip LT w PEL1V IMPRESSION: Normal left hip. Electronically signed by: Chino Kate MD 03/31/2024 06:10 PM EDT
--- NOTE | ~2024-03-31 | XR_ITS ---
EXAMINATION: XR SHOULDER, LEFT CLINICAL INFORMATION: 89-year-old female with diffuse pain COMPARISON: None available. TECHNIQUE: AP external rotation, Grashey, scapular Y, and axillary views of the left shoulder. FINDINGS: There is no evidence of fractures or dislocation. There is diffuse osteopenia. There is cephalad migration of the left humeral head due to rotator cuff tear. Soft tissues unremarkable. XR/XR shoulder LT min 2V IMPRESSION: Diffuse osteopenia and cephalad migration of the left humeral head due to rotator cuff tear. Electronically signed by: Chino Kate MD 03/31/2024 06:09 PM EDT
--- NOTE | ~2024-03-31 | CT_ITS ---
EXAMINATION: CT CHEST WITHOUT CONTRAST CLINICAL INFORMATION: Trauma. Left-sided chest/axillary pain. COMPARISON: Left-sided radiographs from 03/31/2024. TECHNIQUE: Multidetector volumetric CT imaging of the chest was done. Axial MIP volume rendering provided. Sagittal and coronal reformatted images were obtained. This CT examination was performed using dose optimization techniques as appropriate, variously including the following: *Automated exposure control. *Adjustment of mA and/or kV according to patient size (this includes techniques or standardized protocols for targeted exams where dose is matched to indication/reason for exam; i.e. extremities or head). *Use of iterative reconstruction technique. DLP: 793 mGy-cm FINDINGS: Moderate respiratory degradation. LUNGS: Mild bilateral dependent atelectasis. Otherwise, no diffuse or focal lung parenchymal abnormalities. No pleural effusion or pneumothorax. The airways remain patent. MEDIASTINUM: The cardiac structures are without significant demonstrated abnormality. No pericardial effusion. No mediastinal free fluid or gas. No hilar or mediastinal lymphadenopathy. Coronary artery calcifications: Present - advanced. PLEURA: There is no pleural effusion or pneumothorax. No pleural mass or thickening. AXILLA: No lymphadenopathy. UPPER ABDOMEN: There is a 5.3 cm simple cyst in the right kidney (no follow-up imaging recommended based on current guidelines at the time of examination). Changes of prior cholecystectomy. Diverticulosis of the visualized transverse colon. Limited evaluation of the upper abdomen without additional significant soft tissue abnormalities. VASCULATURE: The thoracic aorta is of normal contour and caliber with moderate calcific atherosclerotic disease. OSSEOUS STRUCTURES: Moderate multilevel degenerative changes of the spine. No suspicious lytic or sclerotic osseous lesions demonstrated. Moderate right-sided and mild left-sided degenerative arthropathy of the shoulder joints. No soft tissue masses demonstrated. CT/CT chest wo IV con IMPRESSION: 1. No evidence of acute traumatic injury to the chest. 2. Coronary artery calcifications. Electronically signed by: Paul Davis DO 04/01/2024 12:24 AM EDT
--- NOTE | 2024-03-31 16:23 | ED.FALL ---
HPI - Fall General Chief Complaint: Fall Stated Complaint: fell 3days ago in the shower Time Seen by Provider: 03/31/24 21:13 Source: patient, family, RN notes reviewed and motor vehicle parts interpreter (Luis Fernando) Limitations: language barrier History of Present Illness HPI Narrative: 89-year-old female who has a history of hypertension, presents for evaluation after multiple falls. Patient states that on Wednesday she was attempting to get out of the shower when she slipped and fell to her left side. Patient states that this was despite using a systems bar. She also uses a shower chair but states that it may be too high for her. She was able to get up on her own afterwards. She is complaining of left shoulder and left chest wall pain since that time. Patient states he then had another fall in a similar fashion. She denies striking her head. There was no prodromal symptoms. She recalls the entire event. She has not tried any medication for this. 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 She denies any fevers chills nausea or vomiting. No abdominal pain. She denies any dyspnea on exertion. She denies any urinary symptoms. She is otherwise feeling well. Related Data Home Medications ?Medication ?Instructions ?Recorded ?Confirmed calcium carbonate 500 mg-vitamin 1 tab PO BID 03/04/21 05/17/23 D3 5 mcg (200 unit) tablet (Oysco 500/D) cetirizine 10 mg tablet 10 mg PO DAILY 03/04/21 05/17/23 diclofenac sodium 1 % topical gel 1 ea topical QID 03/04/21 05/17/23 famotidine 20 mg tablet 20 mg PO BID 03/04/21 05/17/23 sennosides 8.6 mg-docusate sodium 1 tab PO BEDTIME 03/04/21 05/17/23 50 mg tablet (Stimulant Laxative Plus) tamoxifen 20 mg tablet 20 mg PO DAILY 03/04/21 05/17/23 venlafaxine 37.5 mg 37.5 mg PO DAILY 03/04/21 05/17/23 capsule,extended release 24 hr metoprolol tartrate 25 mg tablet 25 mg PO BID 03/12/21 05/17/23 amlodipine 5 mg tablet 5 mg PO DAILY 02/04/22 05/17/23 albuterol 90 mcg/actuation aerosol mcg inhalation 11/18/22 05/17/23 inhaler Previous Rx's ?Medication ?Instructions ?Recorded aspirin 81 mg chewable tablet 81 mg PO DAILY #30 tabs 03/04/21 atorvastatin 40 mg tablet 40 mg PO BEDTIME #30 tabs 03/04/21 Allergies Allergy/AdvReac Type Severity Reaction Status Date / Time oxycodone Allergy Severe Hallucinati Verified 03/31/24 16:26 ons [facility] Past Medical History Medical History HTN (hypertension), benign Osteoporosis Osteoarthritis Hypertension Dyspepsia Breast cancer Surgical History Status post right knee replacement Social History Social History Alcohol intake: never Patient Tobacco Use Status: Never used Tobacco Smoked in Last 30 Days: No Advance Directives: No Advance Directives Information Provided: No Do you have a plan to hurt others: No Plan Physical Exam Vital Signs: Vital Signs: Last Vital Signs Temp 97.8 F 04/01/24 00:00 Pulse 80 04/01/24 00:00 Resp 16 04/01/24 00:00 BP 123/48 L 04/01/24 00:00 Pulse Ox 97 04/01/24 00:00 O2 Del Method Room Air 04/01/24 00:00 BMI result Body Mass Index 24.7 Const: General: alert and awake Resp: Other: Lung sounds clear throughout. There was no ecchymosis or crepitus. There is tenderness along the left axillary region. Cardio: Rate: regular rate GI: Other: Abdomen is soft and nontender. No peritoneal signs. Back/Spine/Pelvis: Other: Head Bookkeeper is 5/5 bilaterally. Full range of motion of all joints. Course Course Course Narrative: This is an RME performed by Payam Mayorga CNP: Additional HPI, ROS, PE not included below will be deferred to primary provider. Patient is an 89-year-old female who presents emergency department for evaluation, Reports a mechanical slip and fall in the shower 3 days ago landing on the left side, denies head strike or loss of consciousness. Complaining of pain to the left shoulder, L lat chest and left hip. Patient was refusing to come to the hospital for evaluation. Her sister today made her come for evaluation due to her degree of pain, pain improved slightly with Tylenol. Is having difficulty walking Plan: XR Reevaluation(s) Reevaluation #1: April 01, 2024, 1:43 a.m. reviewed all laboratory and imaging findings with the patient and family member at the bedside. No acute process. They feel comfortable with discharge plan home. No further questions at the time. She will continue to take Tylenol for pain, rest and follow up with PCP. No acute process on imaging. Reviewed with Dr. Traore. Medications Administered Discontinued Medications Generic Name Dose Route Start Last Admin Trade Name Freq PRN Reason Stop Dose Admin Acetaminophen 650 mg 03/31/24 21:35 03/31/24 21:53 Acetaminophen 325 Mg Tablet PO 03/31/24 21:36 650 mg ONCE ONE Administration Medical Decision Making Medical Decision Making [facility] Narrative: 89-year-old female presents for evaluation after 2 falls. Concern for possible CVA, given her weakness and falls. Check head CT ordered. Negative chest x-ray, we will check a chest CT to ensure no additional intrathoracic process. Labs, UA. Differential Diagnosis Differential Diagnoses: The differential diagnosis associated with the presentation includes Rib fracture Pneumothorax Contusion Muscle strain UTI Dehydration Admission/Observation Consideration of admission/observation: Escalation of care including admission/observation considered Lab Data [facility] Lab Attestation statement: I reviewed the patient's lab results. 03/31/24 22:32 03/31/24 22:32 Labs: Lab Results 03/31/24 04/01/24 Range/Units 22:32 00:55 WBC 8.0 (4.8-10.8) X10*3/uL RBC 4.63 (4.20-5.50) X10*6/uL Hgb 13.8 (12.0-16.0) g/dl Hct 41.3 (37.0-47.0) % MCV 89.2 (80.0-98.0) fL MCH 29.8 (27.0-33.0) pg MCHC 33.4 (31.0-35.0) g/dl RDW 14.5 (11.0-16.0) % Plt Count 194 D (160-400) X10*3/uL MPV 9.0 L (9.4-12.3) fL Immature Gran % (Auto) 0.5 H (0.0-0.4) % Neut % (Auto) 57.3 (45-73) % Lymph % (Auto) 25.3 (20-40) % Braxton % (Auto) 13.0 H (2-11) % Eos % (Auto) 3.2 (0-4) % Baso % (Auto) 0.7 (0-2) % Lymph # (Auto) 2.0 (1.2-4.9) X10*3/uL Braxton # (Auto) 1.0 (0.1-1.2) X10*3/uL Eos # (Auto) 0.3 (0.0-0.4) X10*3/uL Baso # (Auto) 0.1 (0.0-0.2) X10*3/uL Abs Immat Gran (auto) 0.04 H (0.00-0.03) X10*3/uL Absolute Neuts (auto) 4.6 (2.0-8.3) x10*3/uL Absolute Nucleated RBC 0.000 (0.0-0.012) X10*3/uL Nucleated RBC % (auto) 0.0 (0.0-0.2) /100WBC Sodium 140 (135-145) mmol/L Potassium 4.3 (3.3-5.1) mmol/L Chloride 110 H (96-108) mmol/L Carbon Dioxide 22 (22-29) mmol/L Anion Gap 12 (12-20) BUN 15 (9-16) mg/dL Creatinine 0.83 (0.5-1.4) mg/dL Estim Creat Clear Calc 31.5 Estimated GFR > 60 Random Glucose 90 (60-115) mg/dL Calcium 9.5 (8.4-10.2) mg/dL Total Bilirubin 0.4 (0.0-1.0) mg/dL AST 35 H (5-31) U/L ALT 20 (0-31) U/L Alkaline Phosphatase 84 (39-117) U/L Total Protein 7.2 (6.5-8.0) g/dL Albumin 3.7 (3.5-5.0) g/dL Urine Color Yellow Urine Appearance Clear Urine pH 7.0 (5.0-9.0) Ur Specific Farrell <= 1.005 (1.005-1.025) Urine Protein Negative (Neg-Trace) mg/dL Urine Glucose (UA) Negative (Negative) mg/dL Urine Ketones Negative (Negative) mg/dL Urine Blood Negative (Negative) Urine Nitrite Negative (Negative) Ur Leukocyte Esterase Negative (Negative) Radiology Impression Discussion of test interpretation with radiology: I have reviewed the radiologist's reading. Radiologist Impression: [address] [address] [address] Scan Report Signed Patient: Elsie Herzog MR#: [id number] : 1935 Acct:[id number] Age/Sex: 89 / F ADM Date: 03/31/24 Loc: HO.ED Attending Dr: Ordering Physician: Reji Kwan Date of Service: 03/31/24 Procedure(s): CT head/brain wo IV con Accession Number(s): [id number] cc: Dulce Fenton ELECTRICAL REPAIRER; Reji Kwan~ EXAMINATION: CT HEAD WITHOUT CONTRAST CLINICAL INFORMATION: Trauma. Fall. COMPARISON: None available. TECHNIQUE: Contiguous axial imaging was performed from the skull base to vertex without intravenous administration of contrast. This CT examination was performed using dose optimization techniques as appropriate, variously including the following: *Automated exposure control. *Adjustment of mA and/or kV according to patient size (this includes techniques or standardized protocols for targeted exams where dose is matched to indication/reason for exam; i.e. extremities or head). *Use of iterative reconstruction technique. DLP: 564 mGy-cm FINDINGS: There is no evidence of acute intracranial hemorrhage or edematous territorial infarction. 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 No additional loss of rascon-white matter differentiation. Confluent hypoattenuation in the periventricular and deep white matter. Proportional prominence of the ventricles and sulcal spaces without evidence of obstructive hydrocephalus. No abnormal mass effect or midline shift. No extra-axial fluid collections. Calcific atherosclerotic disease of the intracranial internal carotid and vertebral arteries. No hyperdense vessel sign. No acute soft tissue or osseous abnormalities. Mild mucosal thickening of the paranasal sinuses. Moderate leftward nasal septal deviation. The mastoid air cells and middle ear cavities are clear. Bilateral lens extractions. Elongated macrophthalmia bilaterally. CT/CT head/brain wo IV con IMPRESSION: 1. No evidence of acute intracranial hemorrhage or edematous territorial infarction. 2. Extensive underlying microangiopathy and generalized cerebral volume loss. Lacunar infarcts of the deep nuclei. Electronically signed by: Paul Davis DO 03/31/2024 11:58 PM EDT Dictated By: Jez Davis DO Signed By: <Electronically signed by Jez Davis DO in OV> 03/31/242357 DD/ 55 TD/TT: 03/31/242155 Internet Security Specialist: SYDNI [place] [address] CT Scan Report Signed Patient: Elsie Herzog MR#: [id number] : 1935 Acct:[id number] Age/Sex: 89 / F ADM Date: 03/31/24 Loc: HO.ED Attending Dr: Ordering Physician: Reji Kwan Date of Service: 03/31/24 Procedure(s): CT chest wo IV con Accession Number(s): [id number] cc: Dulce Fenton ELECTRICAL REPAIRER; Reji Kwan~ EXAMINATION: CT CHEST WITHOUT CONTRAST CLINICAL INFORMATION: Trauma. Left-sided chest/axillary pain. COMPARISON: Left-sided radiographs from 03/31/2024. TECHNIQUE: Multidetector volumetric CT imaging of the chest was done. Axial MIP volume rendering provided. Sagittal and coronal reformatted images were obtained. This CT examination was performed using dose optimization techniques as appropriate, variously including the following: *Automated exposure control. *Adjustment of mA and/or kV according to patient size (this includes techniques or standardized protocols for targeted exams where dose is matched to indication/reason for exam; i.e. extremities or head). *Use of iterative reconstruction technique. DLP: 793 mGy-cm FINDINGS: Moderate respiratory degradation. LUNGS: Mild bilateral dependent atelectasis. Otherwise, no diffuse or focal lung parenchymal abnormalities. No pleural effusion or pneumothorax. The airways remain patent. MEDIASTINUM: The cardiac structures are without significant demonstrated abnormality. No pericardial effusion. No mediastinal free fluid or gas. No hilar or mediastinal lymphadenopathy. Coronary artery calcifications: Present - advanced. PLEURA: There is no pleural effusion or pneumothorax. No pleural mass or thickening. AXILLA: No lymphadenopathy. UPPER ABDOMEN: There is a 5.3 cm simple cyst in the right kidney (no follow-up imaging recommended based on current guidelines at the time of examination). Changes of prior cholecystectomy. Diverticulosis of the visualized transverse colon. Limited evaluation of the upper abdomen without additional significant soft tissue abnormalities. VASCULATURE: The thoracic aorta is of normal contour and caliber with moderate calcific atherosclerotic disease. OSSEOUS STRUCTURES: Moderate multilevel degenerative changes of the spine. No suspicious lytic or sclerotic osseous lesions demonstrated. Moderate right-sided and mild left-sided degenerative arthropathy of the shoulder joints. No soft tissue masses demonstrated. CT/CT chest wo IV con IMPRESSION: 1. No evidence of acute traumatic injury to the chest. 2. Coronary artery calcifications. Electronically signed by: Paul Davis DO 04/01/2024 12:24 AM EDT RP Dictated By: Jez Davis DO Signed By: <Electronically signed by Jez Davis DO in OV> 04/01/24 0024 DD/ 38 TD/TT: 03/31/242155 Internet Security Specialist: SYDNI Independent Historian Clinical information obtained from an independent historian. History obtained from or confirmed by: Friend External Record Review External record reviewed: Inpatient record Prescription Management I considered prescription management with: Pain Medication Discharge Plan Discharge Clinical Impression: Fall, Acute shoulder pain Patient Disposition: Home, Self-Care Instructions: Rotator Cuff Injury (ED) Additional Instructions: Rest. Avoid strenuous activity. Use your cane or walker at all times. Tylenol for any pain as directed. Your CT scan of your brain, chest were okay today. Your x-rays of your hip, pelvis, shoulder and ribs did not show any broken bones. Follow-up with your primary care provider. Call this week to schedule a follow-up appointment. Return to the emergency department if you have any worsening of symptoms, or any concerns. Get well soon! Prescriptions: No Action venlafaxine 37.5 mg capsule,extended release 24hr 37.5 mg PO DAILY cetirizine 10 mg tablet 10 mg PO DAILY sennosides-docusate sodium [Stimulant Laxative Plus] 8.6-50 mg tablet 1 tab PO BEDTIME famotidine 20 mg tablet 20 mg PO BID tamoxifen 20 mg tablet 20 mg PO DAILY calcium carbonate-vitamin D3 [Oysco 500/D] 500 mg(1,250mg) -200 unit tablet 1 tab PO BID diclofenac sodium 1 % gel 1 ea topical QID atorvastatin 40 mg Tablet 40 mg PO BEDTIME Qty: 30 0RF aspirin 81 mg Tablet,Chewable 81 mg PO DAILY Qty: 30 0RF metoprolol tartrate 25 mg tablet 25 mg PO BID amlodipine 5 mg tablet 5 mg PO DAILY albuterol 90 mcg/actuation aerosol inhalation Print Language: Gambian
[2024-03-31 16:24] VITALS: BP 162/52; PULSE 56; RESP 16; TEMP 36.2; O2SAT 99; BMI 24.7
[2024-03-31 20:00] VITALS: BP 131/49; PULSE 56; RESP 15; TEMP 36.6; O2SAT 99
[2024-03-31 20:24] VITALS: BP 131/49; PULSE 56; RESP 15; TEMP 36.6
--- NOTE | 2024-03-31 21:41 | ECG_ITS ---
Test Reason : WEAKNESS Blood Pressure : / mmHG Vent. Rate : 052 BPM Atrial Rate : 052 BPM P-R Int : 174 ms QRS Dur : 124 ms QT Int : 478 ms P-R-T Axes : 045 -57 023 degrees QTc Int : 444 ms Sinus bradycardia Right bundle branch block Left anterior fascicular block Bifascicular block Abnormal ECG When compared with ECG of 04-MAR-2021 06:23, Vent. rate has decreased BY 34 BPM Nonspecific T wave abnormality, improved in Inferior leads Nonspecific T wave abnormality no longer evident in Anterolateral leads Referred By: Reji Kwan Electronically Signed By:ANETA BORJA MD
[2024-03-31] MEDS: Acetaminophen 325 MG TABLET 650 MG PO (21:53)
[2024-03-31 22:38] LABS: MANUAL DIFF FLAG NO
[2024-03-31 22:41] LABS: Basophils Absolute Auto 0.1 X10*3/uL (0.0-0.2); Basophils Percent Auto 0.7 % (0-2); Eosinophils Absolute Auto 0.3 X10*3/uL (0.0-0.4); Eosinophils Percent Auto 3.2 % (0-4); Hematocrit 41.3 % (37.0-47.0); Hemoglobin 13.8 g/dl (12.0-16.0); Imm Gran Abs Auto 0.04 X10*3/uL (0.00-0.03); Imm Gran Pct Auto 0.5 % (0.0-0.4); Lymphocytes Percent Auto 25.3 % (20-40); Mean Corpuscular HGB Conc 33.4 g/dl (31.0-35.0); Mean Corpuscular Hemoglobin 29.8 pg (27.0-33.0); Mean Corpuscular Volume 89.2 fL (80.0-98.0); Neutrophils Absolute Auto 4.6 x10*3/uL (2.0-8.3); Neutrophils Percent Auto 57.3 % (45-73); Platelet Count 194 X10*3/uL (160-400); Red Blood Count 4.63 X10*6/uL (4.20-5.50); Red Cell Distribution Width 14.5 % (11.0-16.0)
[2024-03-31 22:58] LABS: Alanine Aminotransferase 20 U/L (0-31); Albumin Level 3.7 g/dL (3.5-5.0); Alkaline Phosphatase 84 U/L (39-117); Anion Gap 12 (12-20); Aspartate Amino Transferase 35 U/L (5-31); Bilirubin Total 0.4 mg/dL (0.0-1.0); Blood Urea Nitrogen 15 mg/dL (9-16); Calcium 9.5 mg/dL (8.4-10.2); Carbon Dioxide 22 mmol/L (22-29); Chloride 110 mmol/L (96-108); Creatinine Clr Calc Pharmacy 31.5; Estimated Glomerular Filt Rate > 60; Glucose Random 90 mg/dL (60-115); Potassium 4.3 mmol/L (3.3-5.1); Sodium 140 mmol/L (135-145); Total Protein 7.2 g/dL (6.5-8.0)
[2024-03-31 22:59] VITALS: BP 152/66; PULSE 54; RESP 16; TEMP 37; O2SAT 97
--- NOTE | 2024-03-31 23:19 | PC.NURSE ---
this rn assumed care of pt, pt resting in stretcher, no acute distress noted. pt denies pain at this time.
[2024-04-01] VITALS: BP 123/48; PULSE 80; RESP 16; TEMP 36.6; O2SAT 97
--- NOTE | 2024-04-01 01:01 | PC.NURSE ---
pt assisted to bedside commode, denies cp, sob and dizziness. urine sample obtained and sent to lab.
[2024-04-01 01:08] LABS: Appearance Urine Clear; Color Urine Yellow; Glucose Urine UA Negative (Negative); Leukocyte Esterase Urine Negative (Negative); Nitrite Urine Negative (Negative); Specific Gravity - Urine <= 1.005 (1.005-1.025); Urine Blood Negative (Negative); Urine Ketones Negative (Negative); Urine Protein Negative (Neg-Trace)
[2024-04-01 01:52] VITALS: BP 139/55; PULSE 59; RESP 16; TEMP 36.6; O2SAT 98
== END 2024-04-01 01:53 | disposition home or self-care (01) ==
PROVIDERS: Physician Assistant; Emergency Provider Emergency Medicine; PCP Nurse Practitioner Family
DX: M25.512 Pain in left shoulder (principal); M25.552 Pain in left hip; R07.89 Other chest pain; Z91.81 History of falling; I10 Essential (primary) hypertension
CPT/HCPCS: 36415; 70450; 71101; 71250; 73030; 73502; 80053; 81003; 85025; 93005; 99284; 99285

== ENCOUNTER → 2024-03-31 21:41 | Outpatient (BNV) | payer OTHER, SELFPAY | PROVIDERS: Emergency Provider Emergency Medicine; PCP Nurse Practitioner Family; Visit Provider Internal Medicine Cardiovascular Disease | DX: R94.31 Abnormal electrocardiogram [ECG] [EKG] (principal) | CPT/HCPCS: 93010 ==